=== PATIENT | male | born 1950 | race Caucasian/White ===

== ENCOUNTER 2020-06-07 09:49 | Outpatient (CLI) | payer MEDICARE, SELFPAY ==
--- NOTE | ~2020-06-07 | US_ITS ---
EXAMINATION: US venous doppler LE RT DATE: 06/07/2020 10:51 INDICATION: Right lower limb deep venous thrombosis. TECHNIQUE: Grayscale ultrasound images without and with compression and Doppler ultrasound images of the right lower extremity veins were obtained. COMPARISON: None. FINDINGS: The visualized portions of right common femoral vein, profunda (deep) femoral vein, femoral vein, pop liteal vein, peroneal trunk, posterior tibial veins, peroneal veins, gastrocnemius vein and greater s aphenous vein outflow are patent. IMPRESSION: 1. No deep venous thrombosis in the right lower limb. Reviewed, dictated and finalized at location A. [employer] OPERATOR
== END 2020-06-07 09:50 | disposition home or self-care (01) ==
PROVIDERS: PCP Anesthesiology; Visit Provider Student in an Organized Health Care Education/Training Program
DX: Z86.718 Personal history of other venous thrombosis and embolism (principal)
CPT/HCPCS: 93971

== ENCOUNTER 2020-06-07 15:38 | Emergency (ER) | payer MEDICARE, SELFPAY ==
--- NOTE | ~2020-06-07 | XR_ITS ---
XR lumbar spine 2-3V DATE: 06/07/2020 16:39 INDICATION: Fall one week ago. Lower back pain radiating down left leg TECHNIQUE: AP, lateral, coned lateral lumbosacral views COMPARISON: None FINDINGS: Diffuse idiopathic skeletal hyperostosis of the lower thoracic an upper lumbar spine. There is mild rotatory dextroscoliosis of the lumbar spine. There is grade 1 anterolisthesis at L3-4 and L4-5 due to degenerative change at the apophyseal joints . There is moderately severe degenerative disease at L1 to, mild degenerative disc disease at L2-3, mod erate degenerative disc disease at L3-4 and moderately severe degenerative disc disease at L4-5 and L 5-S1. The sacroiliac joints are normal. There is calcification of the abdominal aorta and iliac arteries, without evidence of aneurysm. IMPRESSION: Degenerative changes of the thoracic and lumbar spine; no fracture is detected Reviewed, dictated and finalized at location A. E [employer] P[employer]ER
[2020-06-07 15:43] VITALS: BP 137/111; PULSE 118; RESP 18; TEMP 37; O2SAT 100
--- NOTE | 2020-06-07 16:07 | ED.GENADULT ---
HPI - General Adult General Chief complaint: Back Pain/Injury Stated complaint: lower back pain Time Seen by Provider: 06/07/20 15:59 Source: patient Mode of arrival: ambulatory Limitations: no limitations History of Present Illness HPI narrative: Patient is here for evaluation of left leg and back pain. Pain started after a fall down a hill 5 days ago. Skin progressively worse, his physician has treated him with hydrocodone and he has an ongoing prescription for muscle relaxants. He had a venous Doppler of his right leg earlier today that was negative for thrombus but is complaining of swelling in both feet. Denies any bladder or bowel dysfunction. He has been using a cane to walk and states that it he was unable to stand to shave today due to pain. Onset (ago): day(s) Location: back Radiation: extremity (left leg to knee) Severity: severe Pain Consistency: constant Relieving factors: none Exacerbating factors: movement Treatments prior to arrival: other (hydrocodone and muscle relaxant) Related Data Allergies Allergy/AdvReac Type Severity Reaction Status Date / Time No Known Allergies Allergy Verified 06/07/20 15:47 Review of Systems Review of Systems: All systems reviewed & are unremarkable except as noted in HPI and below FOR[facility]LY [facility] Social History Social History (Updated 06/07/20 @ 16:23 by Ary Nur PA-C) Smoking status: Never smoker Alcohol intake: current Substance use: current Substance use type: marijuana Living arrangements: with family Exam Const: General: no acute distress and alert Orientation/consciousness: patient oriented x3 HENMT: Head: normal to inspection Eyes: Pupils: Equal, round and reactive pupils present Resp: Effort & Inspection: normal respiratory effort Auscultation: clear to auscultation bilaterally Cardio: Rate: regular rate Rhythm: regular rhythm GI: GI Palp: Yes Soft to palpation Skin: General skin exam: normal color Neuro: Motor exam (neuro): 5/5 motor strength present throughout (lower extremities) Extrem: General: normal to inspection and edema (pedal) bilateral Course Course Emergency Course: Point care glucose here was 122. Will start the patient on Medrol Dosepak, given instructions to monitor his glucoses carefully and follow-up with his physician. Recommended physical therapy. Vital Signs Vital signs: Vital Signs Temperature 37.0 C 06/07/20 15:43 Pulse Rate 118 H 06/07/20 15:43 Respiratory Rate 18 06/07/20 15:43 Blood Pressure 137/111 H 06/07/20 15:43 Pulse Oximetry 100 06/07/20 15:43 Temperature 37.0 C 06/07/20 15:43 Pulse Rate 118 H 06/07/20 15:43 Respiratory Rate 18 06/07/20 15:43 Blood Pressure 137/111 H 06/07/20 15:43 Pulse Oximetry 100 06/07/20 15:43 Medical Decision Making Differential Diagnosis Differential Diagnosis: fracture vs disc disease vs sciatica Vital Signs Vital Signs: Vital Signs Temperature 37.0 C 06/07/20 15:43 Pulse Rate 118 H 06/07/20 15:43 Respiratory Rate 18 06/07/20 15:43 Blood Pressure 137/111 H 06/07/20 15:43 Pulse Oximetry 100 06/07/20 15:43 Temperature 37.0 C 06/07/20 15:43 Pulse Rate 118 H 06/07/20 15:43 Respiratory Rate 18 06/07/20 15:43 Blood Pressure 137/111 H 06/07/20 15:43 Pulse Oximetry 100 06/07/20 15:43 Lab Data Labs: Lab Results 06/07/20 Range/Units 17:07 POC Capillary Glucose 122 H (65-105) mg/dl Imaging Data Radiologist's impression: disc disease in L1-5. no fracture. Discharge Plan Discharge Clinical Impression: Sciatica of left side Fall Qualifiers: Encounter type: initial encounter Qualified Code(s): W19.XXXA - Unspecified fall, initial encounter Patient Disposition: Home, Self-Care Condition: Stable Instructions: Antibiotic Form, Sciatica (ED) Additional Instructions: Use your cane in right hand, the height should be at the level of your hip. Take steroid pack as directed, avoid
[2020-06-07 17:09] LABS: Glucose Point of Care 122 (65-105)
[2020-06-07] MEDS: KETOROLAC (*BKC) 60 MG/2 ML VIAL IM (17:51)
== END 2020-06-07 17:52 | disposition home or self-care (01) ==
PROVIDERS: Emergency Provider Emergency Medicine; PCP Anesthesiology
DX: M54.42 Lumbago with sciatica, left side (principal); M51.36 Other intervertebral disc degeneration, lumbar region; W17.81XA Fall down embankment (hill), initial encounter; R73.09 Other abnormal glucose
CPT/HCPCS: 72100; 82948; 93971; 96372; 99283; J1885